=== PATIENT | male | born 1950 | race Caucasian/White ===

== ENCOUNTER 2018-06-04 06:58 | Day surgery (SDC) | payer MEDICARE, SELFPAY ==
[2018-06-04] VITALS (8 sets, daily range): BP systolic 96–110; BP diastolic 61–86; PULSE 48–65; RESP 14–16; TEMP 36.3–36.6; O2SAT 96–99; BMI 27.1
--- NOTE | 2018-06-04 08:30 | COLBX_PTH ---
PATIENT: KYA TORRES LOC: EN U#:[id number] AGE/SX: 67/M ROOM: RE06/04/[address]: Dr. Mikhail Roa MD : 1950 BED: DIS: 06/04/2018 SPEC #: [id number] RECD: 06/04/18 10:24 STATUS: MAYITO CORA #: [id number] THAO: 06/04/18 08:[address]: Mikhail Roa DEPT: SURGICAL PATHOLOGY RECD BY: Nikunj Sanders ENTERED: 06/04/18 10:52 SP TYPE: COLON BX OTHR DR: Dr. Isabel Grey MD Tissues: Rectum, NOS Procedures: Surgery Specimen Level IV HEADER OPERATION: Colonoscopy PRE-OP DIAGNOSIS: Screening TISSUE SUBMITTED: Rectal polyp MICROSCOPIC DIAGNOSIS Rectal polyp, biopsy: Tubular adenoma. SJ:chey 06/05/18 MICROSCOPIC DESCRIPTION Slides are reviewed. GROSS DESCRIPTION Received in fixative is one container labeled with the patient's name and designated rectal polyp. The specimen consists of a piece of jalloh-pink polyp measuring 0.5 x 0.5 x 0.3 cm. The specimen is totally submitted in one cassette. / SJ:chey 06/04/18 TC:1 CPT: 28215
--- NOTE | 2018-06-04 09:02 | HP.PCM_ITS ---
Problem List (1) Screen for colon cancer Status: Acute History of Present Illness Date of Admission: 06/04/18 The patient is a 67 year old M who presents for screening colonoscopy Past Medical History Allergies No Known Allergies Allergy (Verified 05/30/18 13:34) Home Medications: Ambulatory Orders Medication Instructions Recorded E-Tea 2 cap PO DAILY 05/30/18 Elderberry Fruit and Flower [Black 1 each PO DAILY 05/30/18 Elderberry 575 mg Cap] [place] Extract 1 cap PO DAILY 05/30/18 Smoking Status: Former smoker Tobacco Use: Non-smoker - *Family History Maternal History Items: No pertinent history Review of Systems Cardiovascular: Denies: Chest Pain, Chest Pressure, Chest Tightness, Palpitations Respiratory: Denies: Cough, Hemoptysis, Shortness of breath at rest, Shortness of breath upon exertion, Wheezing VTE Information - Inpt Only VTE Present on Admission: No VTE Mechan Device Prophylaxis: None VTE Pharm Prophylaxis ordered?: No Reason prophylaxis not ordered:: Treatment Not Indicated Patient Problems: Active and Suspected Problems Screen for colon cancer (Acute) - Physical Exam Lungs: Clear to auscultation Cardiovascular: Regular rate, Regular Rhythm, No murmurs Abdomen: Bowel Sounds Present, Soft, Non Tender, Non-Distended Vital Signs Temp Pulse Resp BP Pulse Ox 97.4 F L 65 14 110/86 H 99 06/04/18 07:17 06/04/18 07:17 06/04/18 07:17 06/04/18 07:17 06/04/18 07:17 Oxygen Delivery Method Room Air Weight: 168 lb 3.403 oz Body Mass Index (BMI) 27.1 Assessment/Plan All Active Problems Screen for colon cancer (Acute) My plan will be to perform a colonoscopy.
--- NOTE | 2018-06-04 09:03 | OP.ENDO_ITS ---
Patient Name: Janneth Lea Procedure Date: 06/04/2018 8:34 AM Date of : 1950 Age: 67 Procedure: Colonoscopy Indications: Screening for colorectal malignant neoplasm Providers: Mikhail Roa MD Referring MD: Mikhail Roa MD Requesting Provider: Isabel Grey Medicines: See the Anesthesia note for documentation of the administered medications Patient Profile: This is a 67 year old male. Refer to note in patient chart for documentation of history and physical. Last Colonoscopy: 2009. Complications: No immediate complications. Procedure: Pre-Anesthesia Assessment: - Prior to the procedure, a History and Physical was performed, and patient medications and allergies were reviewed. The patient's tolerance of previous anesthesia was also reviewed. The risks and benefits of the procedure and the sedation options and risks were discussed with the patient. All questions were answered, and informed consent was obtained. Prior Anticoagulants: The patient has taken no previous anticoagulant or antiplatelet agents. ASA Grade Assessment: II - A patient with mild systemic disease. After reviewing the risks and benefits, the patient was deemed in satisfactory condition to undergo the procedure. After I obtained informed consent, the scope was passed under direct vision. Throughout the procedure, the patient's blood pressure, pulse, and oxygen saturations were monitored continuously. The Colonoscope was introduced through the anus and advanced to the cecum, identified by appendiceal orifice and ileocecal valve. The colonoscopy was performed without difficulty. The patient tolerated the procedure well. The quality of the bowel preparation was good. Scope In: 8:43:07 AM Scope Withdrawal Time 0 hours 7 minutes 2 seconds Scope Out: 8:56:23 AM Total Procedure Duration Time 0 hours 13 minutes 16 seconds Findings: Hemorrhoids were found on perianal exam. A 5 mm polyp was found in the rectum. The polyp was sessile. The polyp was removed with a hot snare. Resection and retrieval were complete. Multiple small-mouthed diverticula were found in the sigmoid colon. Non-bleeding external and internal hemorrhoids were found during retroflexion. The hemorrhoids were mild and small. The exam was otherwise without abnormality. Impression: - Hemorrhoids found on perianal exam. - One 5 mm polyp in the rectum, removed with a hot snare. Resected and retrieved. - Diverticulosis in the sigmoid colon. - Non-bleeding external and internal hemorrhoids. - The examination was otherwise normal. Recommendation: - Discharge patient to home. - Resume previous diet. - Continue present medications. - Await pathology results. - Repeat colonoscopy in 3 years for surveillance. - Return to my office in 1 week. Procedure Code(s): --- Professional --- 27183, Colonoscopy, flexible; with removal of tumor(s), polyp(s), or other lesion(s) by snare technique Diagnosis Code(s): --- Professional --- Z12.11, Encounter for screening for malignant neoplasm of colon K64.8, Other hemorrhoids K62.1, Rectal polyp K57.30, Diverticulosis of large intestine without perforation or abscess without bleeding CPT copyright 2017 [employer]. All rights reserved. The codes documented in this report are preliminary and upon seismograph operator helper review may be revised to meet current compliance requirements. MD Mikhail Thompson MD 06/04/2018 9:02:51 AM This report has been signed electronically. Number of Addenda: 0 Note Initiated On: 06/04/2018 8:34 AM
--- NOTE | 2018-06-04 09:14 | EKG12_ITS ---
Test Reason : ST CHANGES Blood Pressure : / mmHG Vent. Rate : 052 BPM Atrial Rate : 052 BPM P-R Int : 146 ms QRS Dur : 152 ms QT Int : 472 ms P-R-T Axes : 052 -38 019 degrees QTc Int : 438 ms Sinus bradycardia Left axis deviation Right bundle branch block Abnormal ECG No previous ECGs available Confirmed by SARAH HOLGUIN, DILLON ([id number]), editor continuity and script JHOANA BARCENAS ([id number]) on 06/06/2018 3:18:28 PM Referred By: Mikhail Roa Confirmed By:DILLON SMITH MD
== END 2018-06-04 09:58 | disposition home or self-care (01) ==
LOC: EN 06:59 → AC 07:01
PROVIDERS: Family Provider Internal Medicine; PCP Internal Medicine; Referring Provider Surgery; Visit Provider Surgery
PROC: 0DJD8ZZ Inspection of Lower Intestinal Tract, Via Natural or Artificial Opening Endoscopic (ICD-10-PCS; CPT 45378; principal; 2018-06-04 08:25)
DX: Z12.11 Encounter for screening for malignant neoplasm of colon (principal); K64.8 Other hemorrhoids; K62.1 Rectal polyp; K57.30 Diverticulosis of large intestine without perforation or abscess without bleeding; Z87.891 Personal history of nicotine dependence
CPT/HCPCS: 45385; 88305; 93005; J7120; J1610

== ENCOUNTER → 2018-08-04 06:14 | Outpatient (CLI) | payer MEDICARE, SELFPAY ==
[2018-06-04 07:17] VITALS: BMI 27.1
--- NOTE | 2018-08-04 06:23 | ECHOD_ITS ---
Reason For Study: Abn EKG Procedure This was a 2D Doppler, Color Flow transthoracic echocardiogram. Exam performed in department. Left Ventricle Normal LV size. Left ventricular systolic function is normal. The estimated ejection fraction is 60 %. Stage 1 diastolic dysfunction. No regional wall motion abnormalities noted. Right Ventricle Normal RV size. Normal systolic function. Atria Normal left atrium. Normal right atrium. Bubble contrast study negative for right to left interatrial shunt. Mitral Valve Normal mitral valve. Tricuspid Valve Normal tricuspid valve. Mild tricuspid valve insufficiency. Aortic Valve Normal aortic valve. Trisinus/trileaflet aortic valve. Pulmonic Valve Normal pulmonic valve. Great Vessels Normal aortic root. The pulmonary artery is normal size. Normal inferior vena cava. Pericardium/Pleural No pericardial effusion. Medication Performed a rapid injection of agitated mix of 9 cc saline and 1cc air to assess for atrial septal defect. MMode/2D Measurements & Calculations LVIDd: 4.4 cm IVSd: 1.2 cm Ao root diam: 3.1 cm LVIDs: 2.8 cm LVPWd: 0.98 cm RVDd: 5.0 cm FS: 35.9 % LAV(MOD-bp): 30.8 ml LVAd ap4: 26.7 cm2 SV(MOD-sp4): 44.2 ml LAV(MOD-bp) Indexed: 16.4 ml/m2 EDV(MOD-sp4): 74.0 ml LAV(MOD-sp2): 32.2 ml EDV(sp4-el): 76.2 ml LAV(MOD-sp4): 29.5 ml LVAs ap4: 15.0 cm2 ESV(MOD-sp4): 29.8 ml ESV(sp4-el): 29.1 ml EF(MOD-sp4): 59.7 % EF(sp4-el): 61.8 % SV(sp4-el): 47.1 ml LA A4 area: 12.1 cm2 LA dimension(2D): 3.5 cm RA A4 area: 10.2 cm2 Doppler Measurements & Calculations MV E max wilner: 52.6 cm/sec Lat Peak E' Wilner: 6.5 cm/sec Med Peak E' Wilner: 5.1 cm/sec MV A max wilner: 60.0 cm/sec E/E' lat: 8.1 E/E' med: 10.3 MV E/A: 0.88 Ao V2 max: 124.6 cm/sec LV V1 max: 87.1 cm/sec PA V2 max: 135.8 cm/sec Ao max P.2 mmHg LV V1 max P.0 mmHg Ao V2 mean: 86.1 cm/sec Ao mean P.3 mmHg Ao V2 VTI: 24.8 cm PI end-d wilner: 66.4 cm/sec TR max wilner: 212.6 cm/sec TR max P.1 mmHg Interpretation Summary Normal LV size. Left ventricular systolic function is normal. The estimated ejection fraction is 60 %. Stage 1 diastolic dysfunction. Ordering Physician: Isabel Grey Referring Physician: Isabel Grey Performed By: Brigitte Romero, VARUN, RVT
--- NOTE | 2018-08-04 09:22 | STRESSREP ---
Stress Test Report Exercise myocardial perfusion stress test. 67-year-old man with a history of abnormal EKG. Medications none. Stress protocol: Resting EKG demonstrates normal sinus rhythm with a right bundle branch block a rate of 70 bpm is noted resting blood pressure 122/78 mmHg. The patient exercised according to regular Edwin protocol for total duration of 7 minutes patient completed 1 minute into stage III of the Edwin protocol the maximum heart rate attained was 146 bpm which was 96% of maximum predicted heart rate the maximum workload was 8.5 metabolic equivalents. At rest there were no ST or T wave changes noted suggest ischemia at peak exercise nonspecific ST-T wave changes were noted with normally the criteria for ischemia. No clinical angina was noted the patient maintained the right bundle branch block patent throughout. The test was terminated due to leg fatigue. Myocardial perfusion protocol. 11.5 mCi of technetium 99m sestamibi was injected at rest. The patient exercised according to regular Edwin protocol. At peak exercise 33.6 mCi of technetium 99m sestamibi was injected stress images were obtained stress and rest images were reconstructed and compared in the short axis vertical long horizontal long axis. Gated images were also obtained per Perfusion SPECT analysis: Review of the stress images demonstrate normal uptake of tracer noted in all areas of the myocardium. The resting images similarly demonstrate normal uptake of tracer noted in all areas of the myocardium. No areas of reversibility are noted suggest ischemia. Gated SPECT analysis: The gated ejection fraction is noted to be 74%. Conclusion: Normal exercise myocardial perfusion stress test at a moderate workload. Good functional capacity. Preserved ejection fraction.
== END ==
PROVIDERS: Family Provider Internal Medicine; PCP Internal Medicine; Referring Provider Internal Medicine; Visit Provider Internal Medicine
DX: R94.31 Abnormal electrocardiogram [ECG] [EKG] (principal)
CPT/HCPCS: 78452; 93017; 93306; A9500; A4216